=== PATIENT | female | born 1980 | race Asian ===

== ENCOUNTER 2018-11-21 00:50 | Emergency (ER) | payer OTHER ==
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
== END 2018-11-21 01:48 | disposition home or self-care (01) ==
LOC: ER 00:50
DX: S00.01XA Abrasion of scalp, initial encounter (principal); Y04.8XXA Assault by other bodily force, initial encounter; Y93.89 Activity, other specified; Y92.89 Other specified places as the place of occurrence of the external cause; Y99.8 Other external cause status
CPT/HCPCS: Z7502